=== PATIENT | female | born 1990 | race Two or more races ===

== ENCOUNTER 2017-07-24 15:43 | Emergency (ER) | payer SELFPAY ==
[~2017-07-24] VITALS: Ht 160 cm; Wt 59.0 kg
[2017-07-24] MEDS ORDERED: LAMOTRIGINE50 MG ORAL (15:50)
[2017-07-24] MEDS ORDERED: oxyCODONE HCL/Acetaminophen 5/325mg ORAL ONE (16:30)
[2017-07-24] MEDS ORDERED: Bacitracin Oint UD TOPIC ONE (17:00)
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
[2017-07-24] MEDS ORDERED: IBUPROFEN600 MG ORAL (17:04)
[2017-07-24 17:18] VITALS: BP 108/71
--- NOTE | 2017-07-25 08:21 | Diagnostic Imaging Report ---
Indication: PAIN, status post fall Technique: 3 views of the right elbow Comparison: none Findings: No acute fractures. No dislocations. No joint effusion. Joint spaces are preserved. Normal mineralization. No radiopaque foreign body. Impression: Negative
== END 2017-07-24 17:18 | disposition home or self-care (01) ==
LOC: EMR 16:31
DX: S50.311A Abrasion of right elbow, initial encounter (principal); G40.909 Epilepsy, unspecified, not intractable, without status epilepticus; V89.2XXA Person injured in unspecified motor-vehicle accident, traffic, initial encounter; Y92.9 Unspecified place or not applicable
CPT/HCPCS: 99283